=== PATIENT | male | born 1975 | race Caucasian/White ===

== ENCOUNTER 2020-08-17 02:28 | Outpatient (CLI) | payer BC, SELFPAY ==
[2020-08-17 12:46] LABS: Calculated LDL 115 mg/dL (<100); Cholesterol 183 mg/dL (<200); HDL Cholesterol 37 mg/dL (40-60); Triglyceride 155 mg/dL (<150)
[2020-08-17 12:55] LABS: Hemoglobin A1C 5.7 % (<5.7)
[2020-08-17 22:59] LABS: PSA, Screening 0.4 ng/mL (0.0-2.5)
== END 2020-08-17 02:29 | disposition home or self-care (01) ==
LOC: LOS 02:28
PROVIDERS: PCP Nurse Practitioner Family; Visit Provider Nurse Practitioner Family
DX: Z13.220 Encounter for screening for lipoid disorders (principal); Z13.1 Encounter for screening for diabetes mellitus; Z12.5 Encounter for screening for malignant neoplasm of prostate
CPT/HCPCS: 36415; 80061; 84153; 83036

== ENCOUNTER 2024-09-05 04:26 | Outpatient (CLI) | payer OTHER, SELFPAY ==
[2024-09-05 16:59] LABS: Hemoglobin A1C 5.8 % (<5.7)
[2024-09-05 18:35] LABS: Calculated LDL 99 mg/dL (<100); Cholesterol 180 mg/dL (<200); HDL Cholesterol 36 mg/dL (>or=40); TSH (W/Ref FT4) 5.68 uIU/mL (0.36-3.74); Triglyceride 225 mg/dL (<150)
[2024-09-06 18:41] LABS: T4, Free 0.9 ng/dL (0.8-2.2)
== END 2024-09-05 04:27 | disposition home or self-care (01) ==
LOC: LBO 04:27
PROVIDERS: PCP Nurse Practitioner Family; Visit Provider Nurse Practitioner Family
DX: Z13.1 Encounter for screening for diabetes mellitus (principal); E66.01 Morbid (severe) obesity due to excess calories; Z68.42 Body mass index [BMI] 45.0-49.9, adult; Z13.220 Encounter for screening for lipoid disorders
CPT/HCPCS: 36415; 80061; 83036; 84439; 84443